=== PATIENT | female | born 1995 | race Caucasian/White ===

== ENCOUNTER 2024-06-29 19:55 | Emergency (ER) | payer MEDICAID, OTHER ==
[~2024-06-29] VITALS: Ht 160 cm; Wt 173.0 kg
[2024-06-29 19:55] VITALS: BP 111/64; PULSE 80; RESP 14; O2SAT 95
[2024-06-29] MEDS: TETANUS-DIPTH-ACEL PERTUSSIS 0.5ML SYR Tdap IM ONE (20:33)
[2024-07-01 08:42] LABS: Hepatitis B Surface Antibody Negative (Negative)
[2024-07-01 08:54] LABS: Hepatitis B Surface Antigen Negative (Negative)
== END 2024-06-29 20:43 | disposition home or self-care (01) ==
LOC: ER 19:55
DX: S60.311A Abrasion of right thumb, initial encounter (principal); E03.9 Hypothyroidism, unspecified; Z98.890 Other specified postprocedural states; Z88.8 Allergy status to other drugs, medicaments and biological substances; W46.0XXA Contact with hypodermic needle, initial encounter; Y93.89 Activity, other specified; Y92.89 Other specified places as the place of occurrence of the external cause; Y99.8 Other external cause status
CPT/HCPCS: 36415; 86703; 86706; 86803; 87340; 90471; 90715